=== PATIENT | female | born 1995 | race American Indian/Alaskan Native ===

== ENCOUNTER 2018-05-23 19:37 | Emergency (ER) | payer MEDICAID ==
[2018-05-23] MEDS ORDERED: TYLENOL PO ONE (20:25)
--- NOTE | 2018-05-23 20:25 | Emergency Department Report ---
Blank Doc - Documentation Documentation: This is a 22-year-old female that presents with URI symptoms with sore throat and body aches. Stated is about 9 months but denies any abdominal pain, vaginal bleeding or pelvic pain. This initial assessment/diagnostic orders/clinical plan/treatment(s) is/are subject to change based on patient's health status, clinical progression and re- assessment by fellow clinical providers in the ED. Further treatment and workup at subsequent clinical providers discretion. Patient/guardians urged not to elope from the ED as their condition may be serious if not clinically assessed and managed. Initial orders include: 1- Patient sent to [facility] for further evaluation and treatment 2- flu/strep swabs 3- Tylenol
[2018-05-23 20:27] VITALS: BP 117/55
--- NOTE | 2018-05-24 00:53 | Emergency Department Report ---
- General Chief Complaint: Upper Respiratory Infection Stated Complaint: HEADACHE/BODY PAIN/36 WKS PREG Time Seen by Provider: 05/23/18 20:24 Source: patient, family Mode of arrival: Ambulatory Limitations: No Limitations - History of Present Illness Initial Comments: Pt is a 22 yo female who presents to the ED with c/o a sore throat that began at 4 AM this morning. She states she has pain with swallowing. The patient has associated congestion, fever, generalized body aches, and MENDIOLA. She denies any cough, CP, SOB, or ear pain. She did not take anything at home except for halls. The patient is currently 36 weeks and goes to [facility] (formerly [facility]). She denies any abd pain, vaginal bleeding, and is still feeling the baby move. - Related Data Home Medications Medication Instructions Recorded Confirmed Last Taken No Known Home Medications [No 05/11/15 05/11/15 Unknown Reported Home Medications] Allergies Allergy/AdvReac Type Severity Reaction Status Date / Time latex Allergy Unknown Verified 02/08/14 11:02 Penicillins Allergy Rash Verified 05/23/18 20:31 silk tape Allergy Rash Uncoded 05/11/15 00:26 ED Review of Systems ROS: Stated complaint: HEADACHE/BODY PAIN/36 WKS PREG Other details as noted in HPI Comment: All other systems reviewed and negative ED Past Medical Hx - Past Medical History Previous Medical History?: Yes Hx Asthma: Yes Additional medical history: herpes - Surgical History Past Surgical History?: No - Social History Smoking Status: Never Smoker Substance Use Type: None - Medications Home Medications: Home Medications Medication Instructions Recorded Confirmed Last Taken Type No Known Home Medications [No 05/11/15 05/11/15 Unknown History Reported Home Medications] ED Physical Exam - General Limitations: No Limitations General appearance: alert, in no apparent distress - Head Head exam: Present: atraumatic, normocephalic - Eye Eye exam: Present: normal appearance - ENT ENT exam: Present: other (mild posterior oropharynx erythema, no exudates, no tonsillar hypertrophy ) - Neck Neck exam: Absent: lymphadenopathy - Respiratory Respiratory exam: Present: normal lung sounds bilaterally. Absent: respiratory distress, wheezes, rales, rhonchi, stridor, chest wall tenderness, accessory muscle use, decreased breath sounds, prolonged expiratory - Cardiovascular Cardiovascular Exam: Present: regular rate, normal rhythm, normal heart sounds. Absent: systolic murmur, rubs, gallop - Neurological Exam Neurological exam: Present: alert, oriented X3 - Psychiatric Psychiatric exam: Present: normal affect, normal mood - Skin Skin exam: Present: warm, dry, intact ED Course Vital Signs 05/23/18 20:24 Temperature 100.6 F H Pulse Rate 125 H Respiratory 16 Rate Blood Pressure 117/55 O2 Sat by Pulse 99 Oximetry ED Medical Decision Making - Lab Data Laboratory Results - last 24 hr 05/23/18 Unknown Influenza A (Rapid) Negative Influenza B (Rapid) Negative Group A Strep Rapid Negative - Medical Decision Making Pt is a 22 yo female who presents to the ED with c/o a sore throat that began at 4 AM this morning. She states she has pain with swallowing. The patient has asso ciated congestion, fever, generalized body aches, and MENDIOLA. She denies any cough, CP, SOB, or ear pain. She did not take anything at home except for halls. The patient is currently 36 weeks and goes to [facility] (formerly [facility]). She denies any abd pain, vaginal bleeding, and is still feeling the baby move. Flu and strep test were both negative. Breath sounds are clear and no cough. pt afebrile in the ED after given dose of tylenol and HR improved. Most likely URI. Advised pt she can use tylenol, benadryl, and salt water gargles due to being . Advised to be seen by her INVESTMENT RECOVERY TECHNICIAN and PCP in the next 2-3 days. Continue to drink plenty of fluids. Return to the ED for any new or worsening symptoms. - Differential Diagnosis URI, Viral syndrome, Influenza, Strep throat Critical care attestation.: If time is entered above; I have spent that time in minutes in the direct care of this critically ill patient, excluding procedure time. ED Disposition Clinical Impression: Upper respiratory infection Qualifiers: URI type: unspecified URI Qualified Code(s): J06.9 - Acute upper respiratory infection, unspecified Disposition: - TO HOME OR SELFCARE Is pt being admited?: No Does the pt Need Aspirin: No Condition: Stable Instructions: Upper Respiratory Infection (ED) Additional Instructions: Follow up with your INVESTMENT RECOVERY TECHNICIAN in the next 2-3 days. Follow up with your primary care doctor in the next 2-3 days. Due to being you may safely take tylenol, benadryl, and salt water gargles. Return to the emergency room for any new or worsening symptoms. Referrals: WILLIAM ASHTON MD [Primary Care Provider] - 2-3 Days Time of Disposition: 00:53 Print Language: COMORAN
== END 2018-05-24 01:15 | disposition home or self-care (01) ==
LOC: ED 19:37
DX: O99.513 Diseases of the respiratory system complicating pregnancy, third trimester (principal); J06.9 Acute upper respiratory infection, unspecified; Z91.040 Latex allergy status; Z88.0 Allergy status to penicillin; Z3A.36 36 weeks gestation of pregnancy
CPT/HCPCS: 87116; 87400; 87430